=== PATIENT | female | born 1935 | race American Indian/Alaskan Native ===

== ENCOUNTER 2017-04-17 09:32 | Outpatient (CLI) | payer MEDICARE ==
--- NOTE | 2017-04-17 21:33 | Ultrasound Report ---
FINAL REPORT PROCEDURE: US RENAL BILAT TECHNIQUE: Real-time sonography in multiple planes of the kidneys, ureters and urinary bladder was performed with image documentation. CPT 08042 HISTORY: CHRONIC KIDNEY DISEASE,STAGE 2 COMPARISON: No prior studies are available for comparison. FINDINGS: RIGHT kidney: Normal echotexture. No focal renal mass, calculus, or hydronephrosis. Length: 9.2 x 4.2 x 4.2 cm. LEFT kidney: There are 2 well-defined simple cysts in the upper and lower poles measuring 4.1 x 4.1 x 4.2 centimeters in the upper pole and 2.5 x 3.1 x 2.4 centimeters in the lower pole.. Length: 9.5 x 5.0 x 5.1cm. Bladder: Normal. IMPRESSION: Simple cysts left kidney. Otherwise negative study..
== END 2017-04-17 09:33 | disposition home or self-care (01) ==
LOC: US 09:32
PROVIDERS: ATTEND Internal Medicine Nephrology
DX: I12.9 Hypertensive chronic kidney disease with stage 1 through stage 4 chronic kidney disease, or unspecified chronic kidney disease (principal); N18.2 Chronic kidney disease, stage 2 (mild); N28.1 Cyst of kidney, acquired; E03.9 Hypothyroidism, unspecified; Z87.891 Personal history of nicotine dependence; Z79.899 Other long term (current) drug therapy
CPT/HCPCS: 76770

== ENCOUNTER 2017-05-09 07:13 | Outpatient (CLI) | payer MEDICARE ==
--- NOTE | 2017-05-09 08:11 | Cat Scan Report ---
CT abdomen and pelvis without contrast: Chronic renal disease with renal masses. Transverse images are obtained to the lower chest to the ischium. Coronal and sagittal 2-D reformatted images included. Coronary vascular calcifications are present. The gallbladder has been removed. The abdominal organs are otherwise unremarkable. The right kidney is unremarkable in size, contour, and echogenicity. In the superior pole of the right kidney there is a 5.5 cm cyst and in the medial lower third there is a 3.9 cm cyst both lesions are well-circumscribed. The remainder of the kidney appears grossly unremarkable. No evidence of renal calculus identified in either kidney. There is no hydronephrosis. The unopacified bladder is unremarkable. The aorta is normal in size and contour scattered mural calcification. 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 The unopacified bowel and mesentery is grossly unremarkable. There is a small umbilical hernia containing fat. The bones are somewhat demineralized. Impressions: 2 left renal cysts. No suspicious findings.
== END 2017-05-09 07:14 | disposition home or self-care (01) ==
LOC: CT 07:13
PROVIDERS: ATTEND Urology
DX: D41.02 Neoplasm of uncertain behavior of left kidney (principal); N28.1 Cyst of kidney, acquired; I25.10 Atherosclerotic heart disease of native coronary artery without angina pectoris; K42.9 Umbilical hernia without obstruction or gangrene; N85.8 Other specified noninflammatory disorders of uterus; I10 Essential (primary) hypertension; E78.00 Pure hypercholesterolemia, unspecified; E03.9 Hypothyroidism, unspecified; F17.200 Nicotine dependence, unspecified, uncomplicated; Z90.49 Acquired absence of other specified parts of digestive tract
CPT/HCPCS: 74176

== ENCOUNTER 2017-05-28 07:52 | Outpatient (CLI) | payer MEDICARE ==
--- NOTE | 2017-05-28 15:09 | Magnetic Resonance Report ---
FINAL REPORT EXAM: MR ABDOMEN WO/W CON HISTORY: ABDOMINAL WALL MASS OF LEFT FLANK TECHNIQUE: Fat sensitive and fluid sensitive MR sequences of the abdomen were performed in axial and coronal planes. Pre and post-contrast imaging was obtained. 15 cc MultiHance IV contrast was administered. Findings PRIORS: None. FINDINGS: There is fat signal between internal and external oblique musculature of the abdominal wall. Is not visualized in its entirety but appearance is compatible with a lipoma. There is a left upper pole renal cyst measuring 4.4 cm. There is a left midpole renal cyst measuring 3.4 cm. There is prominent amount of stool in visualized colon. No abnormal fluid collection IMPRESSION: Lipoma located between internal and external oblique musculature of left abdominal wall. This is not visualized in its entirety.
== END 2017-05-28 07:53 | disposition home or self-care (01) ==
LOC: MRI 07:52
PROVIDERS: ATTEND Internal Medicine
DX: D17.5 Benign lipomatous neoplasm of intra-abdominal organs (principal); N28.1 Cyst of kidney, acquired; I10 Essential (primary) hypertension; E78.00 Pure hypercholesterolemia, unspecified; Z72.0 Tobacco use
CPT/HCPCS: 74183; A9577

== ENCOUNTER 2017-05-28 10:39 | Emergency (ER) | payer MEDICARE ==
[2017-05-28 11:29] VITALS: BP 129/78
--- NOTE | 2017-05-28 14:32 | Emergency Department Report ---
Blank Doc - Documentation Documentation: 81-year-old female with a past medical history of previous cholecystectomy, chronic renal insufficiency, hypertension, and GERD presents to the hospital complaining generalized abdominal pain 1 week. No bowel movement in 1 week. Patient having cramping pain prior to having a bowel movement having difficulty passing stool. Patient also states that pain feels similar to her episode of diverticulitis 4-5 years ago. No fever reported. She is currently on her last day of antibiotic for UTI treatment. No complaints of vomiting or dysuria. He has been receiving outpatient imaging for abdominal pain. On May 09 she had outpatient noncontrast CT abdomen and pelvis showing 2 left renal cyst without any other acute findings. She had outpatient MRI today and then presented here with complaints of abdominal pain after the MRI. Labs ordered CBC, CMP, UA Requested that MRI be upgraded to urgent instead of routine that we may obtain a repeat today Patient's PMD is Dr Castillo
[2017-05-28 15:00] LABS: Basophils # (Auto) 0.1 K/mm3 (0.0-0.1); Eosinophils # (Auto) 0.2 K/mm3 (0.0-0.4); Eosinophils % (Auto) 2.6 % (0.0-4.3); Lymphocytes # (Auto) 2.8 K/mm3 (1.2-5.4); Lymphocytes % (Auto) 31.5 % (13.4-35.0); Mean Corpuscular HGB Conc 33 % (30-34); Mean Corpuscular Hemoglobin 30 pg (28-32); Mean Corpuscular Volume 89 fl (79-97); Monocytes % (Auto) 10.9 % (0.0-7.3); Platelet Count 215 K/mm3 (140-440); Red Blood Count 5.07 M/mm3 (3.65-5.03); Red Cell Distribution Width 14.8 % (13.2-15.2)
[2017-05-28 15:11] LABS: Alanine Aminotransferase 23 units/L (7-56); BUN/Creatinine Ratio 16; Blood Urea Nitrogen 16 mg/dL (7-17); Hemolysis Index 27; Lipase 121 units/L (13-60)
--- NOTE | 2017-05-28 15:12 | Emergency Department Report ---
ED Abdominal Pain HPI - General Chief Complaint: Abdominal Pain Stated Complaint: ABD PAIN Time Seen by Provider: 05/28/17 14:17 Source: patient Mode of arrival: Ambulatory Limitations: No Limitations - History of Present Illness Initial Comments: 81-year-old female with a past medical history of previous cholecystectomy, chronic renal insufficiency, hypertension, and GERD presents to the hospital complaining generalized abdominal pain 1 week. Pain feels crampy. No bowel movement in 1 week. Patient having cramping pain prior to having a bowel movement having difficulty passing stool. Patient also states that pain feels similar to her episode of diverticulitis 4-5 years ago. No fever reported. She is currently on her last day of antibiotic for UTI treatment. No complaints of vomiting or dysuria. He has been receiving outpatient imaging for abdominal pain. On May 09 she had outpatient noncontrast CT abdomen and pelvis showing 2 left renal cyst without any other acute findings. She had outpatient MRI today and then presented here with complaints of abdominal pain after the MRI. Pain is 10 out of 10 worse with movement better with rest. No medication taken. MD Complaint: abdominal pain Onset/Timin -: week(s) Location: diffuse Radiation: none Migration to: no migration Severity: severe Severity scale (0 -10): 10 Quality: cramping, fullness Consistency: intermittent Improves With: movement Worsens With: movement Context: other (constipation) Associated Symptoms: constipation. denies: nausea, vomiting, diarrhea, fever, chills, dysuria, hematemesis, hematochezia, melena, hematuria, anorexia, syncope Treatments Prior to Arrival: other (none) - Related Data Home Medications Medication Instructions Recorded Confirmed Last Taken Atenolol [Tenormin] 25 mg PO DAILY 09/15/14 09/21/14 09/21/14 Desvenlafaxine Succinate [Pristiq 100 mg PO DAILY 09/15/14 09/21/14 09/20/14 ER] Levothyroxine [Synthroid] 100 mcg PO QAM 09/15/14 09/21/14 09/21/14 Omeprazole [PriLOSEC] 40 mg PO QDAY 09/15/14 09/21/14 09/20/14 Simvastatin [Zocor TAB] 20 mg PO QHS 09/15/14 09/21/14 09/21/14 Spironolact/Hydrochlorothiazid 1 each PO QDAY 09/15/14 09/21/14 09/20/14 [Spironolactone-Hctz 25-25 Tab] Previous Rx's Medication Instructions Recorded Last Taken Type Bisacodyl [Dulcolax suppos] 10 mg MA QDAY 2 Days #2 supp.rect 05/28/17 Unknown Rx Dicyclomine [Bentyl] 20 mg PO Q8H PRN #9 tablet 05/28/17 Unknown Rx Magnesium Citrate [Citrate of 296 ml PO ONCE 1 Days #1 bottle 05/28/17 Unknown Rx Magnesia] Allergies Allergy/AdvReac Type Severity Reaction Status Date / Time clopidogrel bisulfate Allergy Swelling Unverified 08/26/13 06:29 [From Plavix] iodine Allergy Unknown Unverified 08/26/13 06:30 ED Review of Systems ROS: Stated complaint: ABD PAIN Other details as noted in HPI Comment: All other systems reviewed and negative Constitutional: no symptoms reported Respiratory: no symptoms reported Cardiovascular: denies: chest pain, palpitations, dyspnea on exertion, edema, syncope, paroxysmal nocturnal dyspnea (1) Gastrointestinal: abdominal pain, constipation. denies: nausea, vomiting, diarrhea, hematemesis, melena, hematochezia Genitourinary: denies: urgency, dysuria, frequency, hematuria, discharge, abnormal menses, dyspareunia Musculoskeletal: denies: back pain, joint swelling, arthralgia, myalgia Skin: denies: rash Neurological: denies: headache, weakness, abnormal gait ED Past Medical Hx - Past Medical History Previous Medical History?: Yes Hx Hypertension: Yes (1981) Hx Heart Attack/AMI: No Hx GERD: Yes Hx Liver Disease: No Hx Renal Disease: No Hx Sickle Cell Disease: No Hx Arthritis: Yes Hx Seizures: No Hx Asthma: No - Surgical History Past Surgical History?: Yes Hx Cholecystectomy: Yes - Family History Family history: hypertension - Social History Smoking Status: Never Smoker Substance Use Type: None - Medications Home Medications: Home Medications Medication Instructions Recorded Confirmed Last Taken Type Atenolol [Tenormin] 25 mg PO DAILY 09/15/14 09/21/14 09/21/14 History Desvenlafaxine Succinate [Pristiq 100 mg PO DAILY 09/15/14 09/21/14 09/20/14 History ER] Levothyroxine [Synthroid] 100 mcg PO QAM 09/15/14 09/21/14 09/21/14 History Omeprazole [PriLOSEC] 40 mg PO QDAY 09/15/14 09/21/14 09/20/14 History Simvastatin [Zocor TAB] 20 mg PO QHS 09/15/14 09/21/14 09/21/14 History Spironolact/Hydrochlorothiazid 1 each PO QDAY 09/15/14 09/21/14 09/20/14 History [Spironolactone-Hctz 25-25 Tab] Bisacodyl [Dulcolax suppos] 10 mg MA QDAY 2 Days #2 supp.rect 05/28/17 Unknown Rx Dicyclomine [Bentyl] 20 mg PO Q8H PRN #9 tablet 05/28/17 Unknown Rx Magnesium Citrate [Citrate of 296 ml PO ONCE 1 Days #1 bottle 05/28/17 Unknown Rx Magnesia] ED Physical Exam - General Limitations: No Limitations General appearance: alert, in no apparent distress - Head Head exam: Present: atraumatic, normocephalic, normal inspection - Eye Eye exam: Present: normal appearance, PERRL, EOMI Pupils: Present: normal accommodation - ENT ENT exam: Present: normal exam, normal orophraynx, mucous membranes moist - Neck Neck exam: Present: normal inspection, full ROM. Absent: tenderness, lymphadenopathy - Respiratory Respiratory exam: Present: normal lung sounds bilaterally. Absent: respiratory distress, chest wall tenderness - Cardiovascular Cardiovascular Exam: Present: regular rate, normal rhythm, normal heart sounds - GI/Abdominal GI/Abdominal exam: Present: soft, tenderness (last mid-to lower abdomen ), normal bowel sounds, mass (left abdomen). Absent: guarding, rebound, rigid, organomegaly, bruit, pulsatile mass, hernia - Extremities Exam Extremities exam: Present: normal inspection, full ROM, normal capillary refill , other (, cyanosis or edema. +2 pulses in all extremities and no neurovascular compromise). Absent: tenderness, pedal edema, joint swelling, calf tenderness - Back Exam Back exam: Present: normal inspection, full ROM, other (ambulates without any difficulties). Absent: tenderness, CVA tenderness (R), CVA tenderness (L), muscle spasm, paraspinal tenderness, vertebral tenderness, rash noted - Neurological Exam Neurological exam: Present: alert, oriented X3, normal gait, reflexes normal. Absent: motor sensory deficit - Psychiatric Psychiatric exam: Present: normal affect, normal mood - Skin Skin exam: Present: warm, dry, intact, normal color. Absent: rash ED Course Vital Signs 05/28/17 11:24 Temperature 97.9 F Pulse Rate 77 Respiratory 16 Rate Blood Pressure 129/78 O2 Sat by Pulse 97 Oximetry - Reevaluation(s) Reevaluation #1: 05/28/17 16:47 Patient stable throughout ED course ED Medical Decision Making - Lab Data Result diagrams: 05/28/17 14:34 05/28/17 14:34 Lab Results 05/28/17 05/28/17 05/28/17 Range/Units 14:34 14:34 Unknown WBC 8.9 (4.5-11.0) K/mm3 RBC 5.07 H (3.65-5.03) M/mm3 Hgb 15.0 H (10.1-14.3) gm/dl Hct 45.0 H (30.3-42.9) % MCV 89 (79-97) fl MCH 30 (28-32) pg MCHC 33 (30-34) % RDW 14.8 (13.2-15.2) % Plt Count 215 (140-440) K/mm3 Lymph % (Auto) 31.5 (13.4-35.0) % [place] % (Auto) 10.9 H (0.0-7.3) % Eos % (Auto) 2.6 (0.0-4.3) % Baso % (Auto) 1.0 (0.0-1.8) % Lymph # 2.8 (1.2-5.4) K/mm3 [place] # 1.0 H (0.0-0.8) K/mm3 Eos # 0.2 (0.0-0.4) K/mm3 Baso # 0.1 (0.0-0.1) K/mm3 Seg Neutrophils % 54.0 (40.0-70.0) % Seg Neutrophils # 4.8 (1.8-7.7) K/mm3 Sodium 145 (137-145) mmol/L Potassium 3.8 (3.6-5.0) mmol/L Chloride 101.2 (98-107) mmol/L Carbon Dioxide 26 (22-30) mmol/L Anion Gap 22 mmol/L BUN 16 (7-17) mg/dL Creatinine 1.0 (0.7-1.2) mg/dL Estimated GFR > 60 ml/min BUN/Creatinine Ratio 16 % Glucose 100 (65-100) mg/dL Calcium 9.0 (8.4-10.2) mg/dL Total Bilirubin 0.60 (0.1-1.2) mg/dL AST 30 (5-40) units/L ALT 23 (7-56) units/L Alkaline Phosphatase 87 (35-129) units/L Total Protein 7.4 (6.3-8.2) g/dL Albumin 4.0 (3.9-5) g/dL Albumin/Globulin Ratio 1.2 % Lipase 121 H (13-60) units/L Urine Color Yellow (Yellow) Urine Turbidity Clear (Clear) Urine pH 5.0 (5.0-7.0) Ur Specific [place] 1.019 (1.003-1.030) Urine Protein <15 mg/dl (Negative) mg/dL Urine Glucose (UA) Neg (Negative) mg/dL Urine Ketones Neg (Negative) mg/dL Urine Blood Neg (Negative) Urine Nitrite Neg (Negative) Urine Bilirubin Neg (Negative) Urine Urobilinogen < 2.0 (<2.0) mg/dL Ur Leukocyte Esterase Neg (Negative) Urine WBC (Auto) 1.0 (0.0-6.0) /HPF Urine RBC (Auto) 1.0 (0.0-6.0) /HPF U Epithel Cells (Auto) < 1.0 (0-13.0) /HPF Urine Mucus Few /HPF - Radiology Data Radiology results: report reviewed Outpatient MRI after abdomen without and with contrast reveals lipoma located between internal and external oblique musculature of the left abdominal wall. There is a left upper pole renal cyst and there is a left mid pole renal cyst which was previously on CT scan. Prominent amount of stool visualized and colon. No abnormal fluid. Previous CT scan of the abdomen and pelvis without contrast on 05/09/2017 revealed 2 left renal cysts. No suspicious findings. - Medical Decision Making ED course: Patient reports that she's been having abdominal pain and no bowel movement 1 week. She had outpatient MRI which was scheduled today by her primary care physician which showed lipoma located to left abdominal wall. Also showed the patient with prominent on amount of stool in colon. Left renal cysts 2 which was previously noted on CT scan. Please refer to radiology section for details on MRI. Laboratory to include CBC stable with normal white count and chemistries normal, urinalysis normal. Her lipase is 121 which is elevated but patient does not have a white counts in only has abdominal pain with palpation and nontender to palpate to right upper quadrant or mid quadrant. He is referred to laboratory section for details. Discuss diagnosis , treatment plan and MRI results the patient and she voiced understanding and was due to follow up with Dr. Castillo who is her primary care physician. Patient discharge home with prescription for mag citrate, Bentyl and Dulcolax suppository, Critical care attestation.: If time is entered above; I have spent that time in minutes in the direct care of this critically ill patient, excluding procedure time. ED Disposition Clinical Impression: Lipoma of abdominal wall, Elevated lipase Constipation Qualifiers: Constipation type: unspecified constipation type Qualified Code(s): K59.00 - Constipation, unspecified Abdominal pain Qualifiers: Abdominal location: unspecified location Qualified Code(s): R10.9 - Unspecified abdominal pain Disposition: OP ADMIT IP TO THIS HOSP Is pt being admited?: No Does the pt Need Aspirin: No Condition: Stable Instructions: Abdominal Pain (ED), High Fiber Diet (ED), Constipation (ED), Lipoma (ED) Additional Instructions: Please follow-up with your primary care physician in regard and MRI findings, constipation and to monitor lipase level which was elevated. Please take a laxative as instructed. Bentyl for cramping See discharge instructions on high fiber diet and also please increase fluid intake. Prescriptions: Bisacodyl [Dulcolax suppos] 10 mg MA QDAY 2 Days #2 supp.rect Dicyclomine [Bentyl] 20 mg PO Q8H PRN #9 tablet PRN Reason: abdominal pain Magnesium Citrate [Citrate of Magnesia] 296 ml PO ONCE 1 Days #1 bottle Referrals: NII CASTILLO JR, MD [Staff Physician] - 05/30/17
[2017-05-28 15:25] LABS: Bilirubin,Urine NEG (Negative); Blood,Urine NEG (Negative); Color,Urine Yellow (Yellow); Mucus,Urine FEW /HPF; Protein,Urine <15 mg/dL mg/dL (Negative); Urobilinogen,Urine < 2.0 mg/dL (<2.0)
== END 2017-05-28 17:14 | disposition admitted as inpatient to this hospital (09) ==
LOC: ED 10:39
DX: K59.00 Constipation, unspecified (principal); D17.1 Benign lipomatous neoplasm of skin and subcutaneous tissue of trunk; I10 Essential (primary) hypertension; K21.9 Gastro-esophageal reflux disease without esophagitis; Z88.8 Allergy status to other drugs, medicaments and biological substances
CPT/HCPCS: 36415; 80053; 81001; 83690; 85025; 99283

== ENCOUNTER 2017-07-04 18:09 | Emergency (ER) | payer OTHER, MEDICARE ==
[2017-07-04 18:59] LABS: Basophils # (Auto) 0.1 K/mm3 (0.0-0.1); Basophils % (Auto) 1.2 % (0.0-1.8); Eosinophils # (Auto) 0.2 K/mm3 (0.0-0.4); Eosinophils % (Auto) 3.3 % (0.0-4.3); Hemoglobin 14.5 gm/dl (10.1-14.3); Lymphocytes # (Auto) 2.6 K/mm3 (1.2-5.4); Mean Corpuscular HGB Conc 33 % (30-34); Mean Corpuscular Hemoglobin 29 pg (28-32); Mean Corpuscular Volume 89 fl (79-97); Monocytes # (Auto) 0.7 K/mm3 (0.0-0.8); Monocytes % (Auto) 9.6 % (0.0-7.3); Platelet Count 259 K/mm3 (140-440); Red Blood Count 4.96 M/mm3 (3.65-5.03); Red Cell Distribution Width 15.2 % (13.2-15.2)
[2017-07-04] MEDS ORDERED: NORCO 5/325 PO ONE (19:02)
[2017-07-04 19:03] LABS: Bilirubin,Urine NEG (Negative); Blood,Urine NEG (Negative); Color,Urine Yellow (Yellow); Mucus,Urine FEW /HPF; Protein,Urine <15 mg/dL mg/dL (Negative); Urobilinogen,Urine < 2.0 mg/dL (<2.0)
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
[2017-07-04 19:18] LABS: Albumin 4.4 g/dL (3.9-5); Calcium 9.4 mg/dL (8.4-10.2)
[2017-07-04 19:40] LABS: Creatine Kinase MB 3.1 ng/mL (0.0-4.0)
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
[2017-07-04 22:09] VITALS: BP 145/93
== END 2017-07-04 23:07 | disposition home or self-care (01) ==
LOC: ED 18:09
DX: S09.90XA Unspecified injury of head, initial encounter (principal); S16.1XXA Strain of muscle, fascia and tendon at neck level, initial encounter; S40.011A Contusion of right shoulder, initial encounter; I10 Essential (primary) hypertension; E11.9 Type 2 diabetes mellitus without complications; M19.90 Unspecified osteoarthritis, unspecified site; K43.9 Ventral hernia without obstruction or gangrene; N39.0 Urinary tract infection, site not specified; V49.49XA Driver injured in collision with other motor vehicles in traffic accident, initial encounter; Y93.89 Activity, other specified; Y99.8 Other external cause status; Y92.488 Other paved roadways as the place of occurrence of the external cause
CPT/HCPCS: 36415; 70450; 71045; 72125; 74176; 80053; 81001; 82550; 82553; 84484; 85025; 93005; 93010

== ENCOUNTER 2020-04-27 08:22 | Outpatient (CLI) | payer MEDICARE ==
--- NOTE | 2020-04-28 08:59 | Mammography Report ---
DIGITAL SCREENING MAMMOGRAM WITH CAD, 04/28/2020 CLINICAL INFORMATION / INDICATION: Routine screening mammography. SCREENING MAMMO Z12.31 TECHNIQUE: Digital bilateral 2D mammography was obtained in the craniocaudal and mediolateral obliqu e projections. This examination was interpreted with the benefit of Computer-Aided Detection analysis . COMPARISON: 02/05/2017, 05/07/2018, FINDINGS: Breast Density: There are scattered areas of fibroglandular density. No dominant mass, suspicious calcifications, or architectural distortion in either breast. Postsurgical scar is noted on the right IMPRESSION: No mammographic evidence of malignancy. Follow up recommendation: Routine yearly BI-RADS Category 2: Benign. A "normal" or negative report should not discourage follow up or biopsy of a clinically significant f inding. A written summary of these findings will be mailed to the patient. The patient will be entered into a mammography reporting system which will generate a reminder letter for the patient's next appointmen t at the appropriate interval. The [employer] recommends yearly mammograms starting at age 40 and continuing as l ruddy as a woman is in good health. Breast MRI is recommended for women with an approximate 20-25% or greater lifetime risk of breast cancer, including women with a strong family history of breast or ova jewel cancer or who have been treated for Hodgkin's disease. Signer Name: Juan Carlos Diaz MD Signed: 04/28/2020 8:55 AM Workstation Name: [id number]
== END 2020-04-27 08:23 | disposition home or self-care (01) ==
LOC: SPVWC 08:22
PROVIDERS: ATTEND Surgery
DX: Z12.31 Encounter for screening mammogram for malignant neoplasm of breast (principal); N64.89 Other specified disorders of breast
CPT/HCPCS: 77067